=== PATIENT | female | born 1940 | race Caucasian/White ===

== ENCOUNTER 2022-11-16 10:07 | Emergency (ER) | payer MEDICARE, BC ==
[~2022-11-16] VITALS: Ht 154.9 cm; Wt 61.4 kg
[2022-11-16 10:24] VITALS: BP 181/70
[2022-11-16] MEDS ORDERED: LIDOcaine 1% 30ml preserv. free vial SQ STA (12:56)
[2022-11-16] MEDS ORDERED: TETanus/Pertussis (Acell)/Diphther VAC/PF (Tdap-Adult) 0.5ml syringe IMVAC ONE (13:00)
[2022-11-16] MEDS ORDERED: HYDROcodone/acetaminophen 5mg/325mg tablet PO ONE (13:00)
[2022-11-16] MEDS ORDERED: ceFAZolin 1gm IM kit IM ONE (13:00)
[2022-11-16] MEDS ORDERED: CEPH-585 PO (14:26)
[2022-11-16] MEDS ORDERED: HYDR-3965 PO (14:26)
[2022-11-17] MEDS ORDERED: HYDR-3965 PO (15:52)
== END 2022-11-16 14:28 | disposition home or self-care (01) ==
LOC: ER 10:08
DX: S01.311A Laceration without foreign body of right ear, initial encounter (principal); W18.39XA Other fall on same level, initial encounter; Y93.89 Activity, other specified; Y92.89 Other specified places as the place of occurrence of the external cause; Y99.8 Other external cause status
CPT/HCPCS: 12011; 70450; 90471; 90715; 96372; 99285; J0690

== ENCOUNTER → 2025-01-29 | Day surgery (SDC) | payer MEDICARE, BC ==
[2025-01-29] VITALS (19 sets, daily range): BP systolic 104–148; BP diastolic 45–124; PULSE 72–93; RESP 10–21; TEMP 97.8–97.9; O2SAT 82–100
[~2025-01-29] VITALS: Ht 152.4 cm; Wt 46.2 kg
[~2025-01-29] MED LIST: ASPI-1053 PO; LEVO125T PO; LOSA1TAB39 PO
== END | disposition home or self-care (01) ==
LOC: PAS 07:45
PROVIDERS: ATTEND Internal Medicine Gastroenterology
DX: D50.0 Iron deficiency anemia secondary to blood loss (chronic) (principal); K57.30 Diverticulosis of large intestine without perforation or abscess without bleeding; K63.5 Polyp of colon; Z79.899 Other long term (current) drug therapy
CPT/HCPCS: 45385; 82948; 88305; 99153; A4620; C1889; G0500; J7070; 45380; 99152

== ENCOUNTER 2025-01-30 07:29 | Day surgery (SDC) | payer MEDICARE, BC ==
[2025-01-30] VITALS (8 sets, daily range): BP systolic 105–132; BP diastolic 47–58; PULSE 68–81; RESP 11–17; O2SAT 97–100
[~2025-01-30 07:29] MED LIST changes: +MIDAZolam 1 MG/ML 5ML VIAL ONE; +fentaNYL/PF 50MCG/1 ML 2ML syringe ONE
[2025-01-30] MEDS ORDERED: fentaNYL/PF 50MCG/1 ML 2ML syringe ONE (09:15)
[2025-01-30] MEDS ORDERED: MIDAZolam 1 MG/ML 5ML VIAL ONE (09:16)
[2025-01-30] MEDS ORDERED: LIDOcaine 2% Viscous 15ml cup ONE (09:16)
== END 2025-01-30 10:50 | disposition home or self-care (01) ==
LOC: PAS 07:29
PROVIDERS: ATTEND Internal Medicine Gastroenterology
DX: D50.0 Iron deficiency anemia secondary to blood loss (chronic) (principal); K25.9 Gastric ulcer, unspecified as acute or chronic, without hemorrhage or perforation; K31.89 Other diseases of stomach and duodenum
CPT/HCPCS: 43239; 82948; 88305; 88342; A4620; J2250; J3010; J7030; J7040; J7070; Z7512; Z7610; 99152